=== PATIENT | female | born 1980 | race Two or more races ===

== ENCOUNTER 2020-11-13 11:41 | Emergency (ER) | payer OTHER ==
[~2020-11-13] VITALS: Ht 157.5 cm; Wt 67.1 kg
== END 2020-11-13 17:07 ==
LOC: ER 11:41
DX: R30.0 Dysuria (principal)

== ENCOUNTER 2023-10-16 08:53 | Day surgery (SDC) | payer OTHER ==
[2023-10-16] MEDS ORDERED: DIPHENHYDRAMINE HCL 50 MG/ML VIAL 1ML IV ONE (13:00)
[2023-10-16] MEDS ORDERED: ONDANSETRON HCL 2 MG/ML VIAL IV ONE (13:00)
[2023-10-16] MEDS ORDERED: fentaNYL CITRATE 50 MCG/ML AMPUL IV PUSH ONE (13:00)
[2023-10-16] MEDS ORDERED: MIDAZOLAM HCL 2 MG/2 ML VIAL IV ONE (13:00)
== END 2023-10-16 14:15 | disposition home or self-care (01) ==
LOC: AMB-ENDOS 08:53
PROVIDERS: ATTEND Colon & Rectal Surgery
DX: K62.1 Rectal polyp (principal); Z88.6 Allergy status to analgesic agent